=== PATIENT | female | born 1950 ===

== ENCOUNTER 2022-03-13 16:23 | Inpatient (IN) | payer OTHER ==
[~2022-03-13] VITALS: Ht 157.5 cm; Wt 81.6 kg
[2022-03-14] MEDS ORDERED: COZAAR100 MG PO (08:58)
[2022-03-14] MEDS ORDERED: TOPROL XL50 M1 PO (08:58)
[2022-03-14] MEDS ORDERED: ACID REDUCER20 M1 PO (08:59)
[2022-03-14] MEDS ORDERED: LIPITOR20 MG PO (08:59)
[2022-03-14] MEDS ORDERED: PEPCID20 MG PO (08:59)
[2022-03-18] MEDS ORDERED: ATORVASTATIN CA20 MG (09:54)
[2022-03-18] MEDS ORDERED: GABAPENTIN300 M2 (09:54)
[2022-03-18] MEDS ORDERED: SUCRALFATE1 GM (09:55)
[2022-03-18] MEDS ORDERED: OMEPRAZOLE40 MG (09:55)
[2022-03-18] MEDS ORDERED: FLUOCINOLONE AC20 ML (09:55)
[2022-03-18] MEDS ORDERED: LOSARTAN-HCTZ1 EAC2 (09:55)
[2022-03-18] MEDS ORDERED: FAMOTIDINE40 MG (09:55)
[2022-03-20] MEDS ORDERED: OXYC1TAB9 PO (07:50)
[2022-03-20] MEDS ORDERED: INTEGRA PLUS C1 EACH PO (07:50)
[2022-03-20] MEDS ORDERED: BACTRIM DS TAB1 EACH PO (07:50)
[2022-03-20] MEDS ORDERED: XARELTO10 MG PO (07:50)
== END 2022-03-20 14:58 | DRG 470 ==
LOC: O/R 03-18 05:10 → SURH 03-18 05:10 → SURG 03-18 07:45 → SURH 03-18 10:53
PROVIDERS: ADMIT Orthopaedic Surgery Sports Medicine; ATTEND Orthopaedic Surgery Sports Medicine
PROC: 0SRC0J9 Replacement of Right Knee Joint with Synthetic Substitute, Cemented, Open Approach (ICD-10-PCS; principal; 2022-03-18 10:15)
DX: M17.11 Unilateral primary osteoarthritis, right knee (principal); I10 Essential (primary) hypertension; Z96.651 Presence of right artificial knee joint; Z20.822 Contact with and (suspected) exposure to COVID-19